=== PATIENT | female | born 1965 ===

== ENCOUNTER 2017-11-10 08:26 | Emergency (ER) | payer OTHER ==
[2017-11-10 09:07] VITALS: TEMP 98.3
--- NOTE | 2017-11-10 09:29 | C.PDOC ---
History Of Present Illness Patient is a 52 y/o female who presents to the ED with a complaint of lower back pain s/p fall on Wednesday 11/01. Patient reports to have lost balance and injured lower back and went to a clinic Friday 11/03; patient was given prescription for MRI and XR of lumbar spine and consult with neurologist. Denies taking pain medication for the last 4 days; admits to continued pain of lower back and onset of headache. Time Seen by Provider: 11/10/17 08:30 Chief Complaint (Nursing): Back Pain History Per: Patient History/Exam Limitations: no limitations Onset/Duration Of Symptoms: Days (Wednesday 11/01) Current Symptoms Are (Timing): Still Present Previous Symptoms: None Recent travel outside of the [place]: No Past Medical History Reviewed: Historical Data, Nursing Documentation, Vital Signs Vital Signs: Last Vital Signs Temp 98.3 F 11/10/17 08:43 Pulse 58 L 11/10/17 10:49 Resp 20 11/10/17 10:49 BP 138/88 11/10/17 10:49 Pulse Ox 100 11/10/17 10:49 - Medical History PMH: No Chronic Diseases Surgical History: No Surg Hx Family History: States: No Known Family Hx - Social History Hx Tobacco Use: No Hx Alcohol Use: No Hx Substance Use: No - Immunization History Hx Tetanus Toxoid Vaccination: No Hx Influenza Vaccination: No Hx Pneumococcal Vaccination: No Review Of Systems Constitutional: Negative for: Fever, Chills Eyes: Negative for: Vision Change Musculoskeletal: Positive for: Back Pain Neurological: Positive for: Headache. Negative for: Weakness, Numbness Physical Exam - Physical Exam Appears: Well, Non-toxic, No Acute Distress Skin: Normal Color, Warm, Dry Head: Atraumatic, Normacephalic Eye(s): bilateral: Normal Inspection, PERRL, EOMI Oral Mucosa: Moist Throat: Normal Neck: Normal ROM Chest: Symmetrical Cardiovascular: Rhythm Regular, No Murmur Respiratory: Normal Breath Sounds, No Rales, No Rhonchi, No Wheezing Gastrointestinal/Abdominal: Soft, No Tenderness Back: Paraspinal Tenderness (lumbar area), Straight Leg Raising (positive bilaterally) Extremity: Normal ROM (x4) Neurological/Psych: Oriented x3, Normal Speech, Normal Cognition, Normal Motor ( normal strength), Normal Sensation Gait: Steady ED Course And Treatment O2 Sat by Pulse Oximetry: 99 Progress Note: LS Spine XR ordered. Torodol administered. On re-evaluation ambulating with steady gait, neuro intact Reassessment Condition: Improved Medical Decision Making Medical Decision Making: Patient in no distress, mild lumbar tenderness, ambulating with steady gait Disposition Counseled Patient/Family Regarding: Studies Performed, Diagnosis, Need For Followup, Rx Given - Disposition Referrals: [facility] [employer] [facility] [Outside] [facility] [Outside] Disposition: HOME/ ROUTINE Disposition Time: 10:40 Condition: IMPROVED Additional Instructions: Follow up with your PMD or clinic for further evaluation Prescriptions: Cyclobenzaprine [Cyclobenzaprine HCl] 10 mg PO BID PRN #12 tab PRN Reason: Pain, Moderate (4-7) Naproxen [Naprosyn] 1 tab PO BID PRN #25 tab PRN Reason: Pain Instructions: Low Back Pain in Adults, Back Exercises Forms: [employer] (Swedish) Print Language: FAROESE - POA Present On Arrival: None - Clinical Impression Clinical Impression: Low back pain - Scribe Statement The provider has reviewed the documentation as recorded by the Scribe Polly Rios All medical record entries made by the Scribe were at my direction and personally dictated by me. I have reviewed the chart and agree that the record accurately reflects my personal performance of the history, physical exam, medical decision making, and the department course for this patient. I have also personally directed, reviewed, and agree with the discharge instructions and disposition.
--- NOTE | 2017-11-10 10:05 | RAD ---
PROCEDURE: Radiographs of the Lumbar Spine. HISTORY: trauma COMPARISON: No prior. FINDINGS: BONES: Normal alignment. No listhesis. No fracture. DISC SPACES: Unremarkable. OTHER FINDINGS: None. IMPRESSION: Unremarkable radiographs of the lumbar spine.
[2017-11-10 10:49] VITALS: BP 138/88; PULSE 58; RESP 20
[2017-11-10 16:35] VITALS: O2SAT 99
== END 2017-11-10 11:10 | disposition home or self-care (01) ==
LOC: C.ER 08:26
DX: M54.5 Low back pain (principal)
CPT/HCPCS: 72100; 96372; 99285; J1885